=== PATIENT | female | born 1965 | race Caucasian/White ===

== ENCOUNTER → 2017-02-24 | Outpatient (CLI) | payer BC ==
[~2017-02-24] MED LIST: ASCO250T4 PO; CETI10TA84 PO; CHOL20009 PO; CONJ0.453 PO; CYAN500T PO; CYCL0.052 OPB; MULT-506 PO; MULT1CHW44 PO; OYST500T47 PO
== END | disposition home or self-care (01) ==
LOC: C.RDSM 14:10
PROVIDERS: ATTEND Physical Medicine & Rehabilitation Sports Medicine
DX: M25.551 Pain in right hip (principal)

== ENCOUNTER → 2017-02-24 | Outpatient (CLI) | payer BC ==
[2017-02-24 16:47] LABS: HEMATOCRIT 37.9 % (37-47); MEAN CORPUSCULAR HEMOGLOBIN 30.2 pg (25-34); MEAN CORPUSCULAR HGB CONC 33.5 g/dl (32-36); MEAN PLATELET VOLUME 10.5 fL (7.4-10.4); PLATELET COUNT 245 K/uL (130-400); RED BLOOD COUNT 4.21 M/uL (4.2-5.4); WHITE BLOOD COUNT 6.11 K/uL (4.8-10.8)
[2017-02-24 17:18] LABS: BLOOD UREA NITROGEN 10 mg/dl (7-18); BUN/CREATININE RATIO 14.1 (10-20); CALCIUM 9.1 mg/dl (8.5-10.1); CARBON DIOXIDE 29 mmol/L (21-32); CHLORIDE 105 mmol/L (98-107); GLUCOSE 90 mg/dl (70-99); POTASSIUM 3.7 mmol/L (3.5-5.1); SODIUM 142 mmol/L (136-145)
== END | disposition home or self-care (01) ==
LOC: C.LAB1850 16:03
PROVIDERS: ATTEND Physician Assistant
DX: Z01.812 Encounter for preprocedural laboratory examination (principal); M24.151 Other articular cartilage disorders, right hip

== ENCOUNTER → 2017-03-04 | Day surgery (SDC) | payer BC ==
[2017-02-28 08:46] VITALS: Ht 160 cm; Wt 49.5 kg
[~2017-03-04] VITALS: Ht 160 cm; Wt 49.5 kg
[~2017-03-04] MED LIST changes: +ATROPINE SULFATE 0.1 MG/ML 5ML SYR IV PRN; +CEFAZOLIN 2000 MG/60 ML D5W IV SCH; +DEXAMETHASONE SOD INJ 4 MG/ML VIAL ONE; +EpHEDrine SULFATE 50MG/5ML SYR ONE; +EpHEDrine SULFATE INJ 50 MG/ML AMP IV PRN; +FENTANYL CITRATE INJ 50 MCG/1 ML 2 ML VIAL IV PRN; +FENTANYL CITRATE INJ 50 MCG/1 ML 2 ML VIAL ONE; +GLYCOPYRROLATE INJ 0.2 MG/ML VIAL ONE; +HYDROmorphone INJ 1 MG/ML SYR ONE; +LACTATED RINGER'S 1000ML 1,000 ML IV SCH; +LIDOCAINE HCL 2% 2 ML VIAL (20MG/ML) ONE; +MIDAZOLAM HCL 1 MG/ML 2ML VIAL ONE; +NEOSTIGMINE METHYLSULFATE 5 MG/5 ML SYR ONE; +ONDANSETRON INJ 2 MG/ML 2 ML VIAL IV PRN; +ONDANSETRON INJ 2 MG/ML 2 ML VIAL ONE; +OXYCODONE/ACETAMINOPHEN 5-325 TAB PO PRN; +PROPOFOL IV EMULSION 10 MG/ML 20 ML VIAL IV ONE; +ROCURONIUM BROMIDE 10 MG/ML 5 ML VIAL ONE; +SCOPOLAMINE 1.5 MG TDSY TD ONE; +SODIUM CHLORIDE 0.9% 1000ML 1,000 ML IV SCH; +SODIUM CHLORIDE 0.9% INJ 10 ML VIAL ONE
--- NOTE | 2017-03-04 06:49 | History & Physical Bridge Note ---
H&P Re-Evaluation Bridge Note: I have examined the patient, reviewed the History & Physical and in the interval since the performance of the History & Physical I have noted the following changes of clinical significance: No changes noted
--- NOTE | 2017-03-04 06:50 | Discharge Instructions ---
Discharge Instructions Date of Service Mar 04, 2017. Visit Reason for Visit: Right Hip Labral Tear Discharge Discharge Diagnosis / Problem: same Discharge Goals Goal(s): Decrease discomfort, Improve function Medications Stopped Medications Name(s): na Activity Recommendations Activity Limitations: as noted below Lifting Limitations: until after follow-up appointment Exercise/Sports Limitations: until after follow-up appointment May Resume Sexual Activity: after follow-up appointment Shower/Bathe: keep incision dry Weightbearing Status: Right toe touch Anesthesia . Post Anesthesia Instructions: If you have had General Anesthesia or IV Sedation: * Do not drive today. * Resume driving when surgeon permits. * Do not make important decisions or sign legal documents today. * Call surgeon for: 1. Temperature elevations greater than 101 degrees F. 2. Uncontrollable pain. 3. Excessive bleeding. 4. Persistent nausea and vomiting. 5. Medication intolerance (nausea, vomiting or rash). * For nausea and vomiting use only clear liquids such as: tea, soda, bouillon until nausea subsides, then gradually increase diet as tolerated. * If you have any concerns or questions, call your surgeon's office. If physician is unavailable and it is an emergency, call 911 or go to the nearest emergency room. . Instructions / Follow-Up Instructions / Follow-Up New Medicine: * You will likely be taking one or more of these medicines: 1. Percocet - Take, as directed, when you need it, every four to six hours to control your pain. 2. Iron Sulfate - Take three times each day for the month after surgery to help you replace the blood lost during surgery. 3. Coumadin - Thins your blood to lessen the chance of forming a blood clot. The dose of this is different for each person and is based on your blood tests that are done twice a week. * The most common side effects of pain medicine and iron are nausea and constipation. If nausea or constipation is too much of a problem or if you have any questions about your new medicines or doses, call [facility] at . We will try to help you manage these issues. VERY IMPORTANT TO READ AND REVIEW" Blood Clots and Blood Thinning Medicine: * You are given Coumadin during the immediate post-operative period to lessen the risk of blood clots forming in your legs and/or lungs. Coumadin is usually given for six weeks after surgery. * The prescription is for 2 mg tablets. At discharge, you should understand your dose and take it all at the same time every day, preferably after dinner. * You need to get your blood checked 1 - 2 times per week for six weeks, or as directed. * If your dose needs to change, we will call you. Do not take your medication on the day of the blood test until we call you. * If you don't hear from us after your blood draws, keep taking the same dose. Pain: * The immediate post-operative period after hip replacement surgery is often quite painful. * You are given a prescription for pain medicine. You should take it, as directed, when you need it, especially before physical therapy and before going to bed. Pain that interferes with sleep is very common and can last several months. * You will likely need pain medicine for the first two to four weeks. It will not stop all of the pain. The pain will lessen and as you feel better, you may change to milder pain medicine such as Tylenol. * The most common side effects of pain medicine are nausea and constipation, so don't take more than you need. Physical Therapy: * Follow the "Hip Precautions Instructions." * In some cases, the high school social studies tutor at the hospital will arrange to have a therapist come to your house for the first couple of weeks to help you learn these skills. * You need to practice on your own or with the help of a family member as needed. * When you learn these skills, most of the therapy can be done on your own. Home Exercise: * You were shown a series of exercises in the hospital. Do these exercises three to four times each day including the exercises you were shown in physical therapy. Walking: * Get up and walk several times each day. For the first four weeks, try not to stand or walk for more than one hour at a time. If you do stand or walk for more than one hour, you will not hurt anything, but your leg will likely swell. * As you feel comfortable, you may change from the walker or crutches to a cane and then to independent walking. SELF CARE INSTRUCTIONS AFTER TOTAL HIP REPLACEMENT Until the incision and soft tissues around your hip have healed, there is a possibility that the hip prosthesis could dislocate. A. Observe the following precautions to prevent dislocation: 1. Don't bend your hip greater than 90 degrees. 2. Avoid crossing your legs or ankles while standing or lying. 3. Sit with your feet placed 6 inches apart. 4. When sitting, keep your knees below your hips. Sit on a firm surface, avoid deep, soft chairs and couches. Use an elevated toilet seat in the bathroom. 5. Don't bend over at the waist. Use a long handled shoehorn and a sock aid to help you put on your shoes and socks. A central supply aide can help you worm picker objects that are too high or too low to reach. 6. Keep car riding to a minimum for at least one month after surgery. B. Your balance may be shaky for a while. Use crutches or a walker until directed by your doctor. C. Use hand rails when walking on stairs. D. Wear low heeled shoes with non-slip soles. E. Be sure that your floors are free of things that could trip you - throw rugs , electrical cords, small objects. Avoid wet and waxed floors, especially with crutches and canes. F. Try to walk several times a day with rest periods between. G. Continue with all the exercises taught to you in the hospital. Again, make walking a part of your daily routine. VERY IMPORTANT TO READ AND REVIEW A. Take Coumadin, or Lovenox (blood thinning medications) as directed by your doctor. If you are on Coumadin, have a pro-time (blood test) drawn according to your doctor's instructions. This will tell the doctor how well the Coumadin is thinning your blood. B. There are a few signs you need to watch for after you are home. If you notice any of the followin. Increased severe hip pain. Some pain is expected especially when you exercise. 2. Increased swelling in your leg or knee; pain or swelling of the calf muscle in either lower leg. 3. Any fluid drainage from the incision. 4. Shortness of breath or chest pain. TEDs/Elastic Stockings: * The white elastic stockings help limit swelling and prevent blood clots from forming in your legs. The more you wear them, the more they work. * Wear them for six weeks. Prevention of Infection: * Take antibiotics one hour before any dental cleaning, dental work, urological procedure, gastrointestinal procedure or any invasive surgery in order to prevent your new joint from getting infected. * You may get the antibiotics from the doctor performing the procedure or we will call in a prescription to the pharmacy of your choice. Call the office for a prescription at least 2 days prior to your appointment. Things to Watch For: * Drainage from the incision site that occurs more than one week after your surgery. * Severely increased leg pain or swelling. * Increased redness at the incision site. * Fever above 101 degrees Fahrenheit. * Unusual chest pain or shortness of breath. * Unusual pain or burning with urination. Diet Recommendations Recommended Home Diet: resume previous diet Procedures Procedures Performed: see op note right hip scope Pending Studies Studies pending at discharge: no Medical Emergencies . Who to Call and When: Medical Emergencies: If at any time you feel your situation is an emergency, please call 911 immediately. . Non-Emergent Contact Non-Emergency issues call your: Specialist Call Non-Emergent contact if: temperature is above 101.5 . . "Provider Documentation" section prepared by Raphael Mata.
--- NOTE | 2017-03-04 10:23 | [facility] Post Operative Brief Note ---
Immediate Operative Summary Operative Date Mar 04, 2017. Pre-Operative Diagnosis Right Hip Labral Tear Post-Operative Diagnosis same Procedure(s) Performed Right Hip Arthroscopic Labral Debridement, Labral Repair Surgeon Dr. Siddhartha Mata Electrical Logging Operator Surgeon(s) Dr. Andrews Feliciano, [facility],. PA-C Estimated Blood Loss trace Findings labral tear with chondral disease acetabulum/small CAM lesion Fluids (cc crystalloids) 1200cc Specimens none Drains none Anesthesia GET Complication(s) None Disposition Recovery Room / PACU
--- NOTE | 2017-03-04 10:53 | OPERATIVE REPORT ---
DATE OF OPERATION: 03/04/2017 SURGEON: Dr. Mata. SPEECH CORRECTION CONSULTANT: Nilam. SECOND SPEECH CORRECTION CONSULTANT: Pj Wade PA-C. PREOPERATIVE DIAGNOSIS: Labral tear, right hip, chondral labral degeneration, small cam lesion. POSTOPERATIVE DIAGNOSIS: Same. OPERATION PERFORMED: 1. Exam under anesthesia. 2. Diagnostic arthroscopy. 3. Arthroscopic debridement and chondroplasty acetabulum with labral repair. 4. Resection of small cam lesion. PERIOPERATIVE SITUATION: Medically cleared female with intractable hip pain. At this point in time wants to proceed with surgical treatment, failed conservative management. Physical exam, x-ray and MRI scan consistent with labral tear, perhaps small cam lesion. PROCEDURE IN DETAIL: The patient appropriately identified, site verified, consent verified, 2 grams of Ancef confirmed as being given. The right lower extremity was examined, it was not unstable. She was then carefully placed in the traction table and traction applied. Hip was then able to be distracted well. Traction was released. The leg was then prepped and draped in usual routine fashion, traction applied, and the anterior trochanteric portal made in the central zone of the joint. With needle localization, the anterior portal was made lateral /distal to the anterior superior iliac spine. Excellent portals were obtained. Small capsular releases were performed. Mobility was excellent. The labrum was definitely diseased with hypermobility, flipping into the joint, and chondral labral delamination. This was all cleaned with the shaver and instrumentation and debrided. Two anchors were then placed with suture loops, excellent repair obtained. The capsule was then debrided slightly and the hip flexed and the small cam lesion resected with the shaver and a small round sheri, it was very small. All bone dust and debris was then removed. The procedure was then terminated. All instruments and fluid removed and the portals closed with 4-0 nylon, dressed with Xeroform, 4 x 4 gauze, ABD pads, and Ioban dressing. Estimated blood loss trace. Crystalloid 1200 mL. The patient will be touchdown weightbearing. DVT prophylaxis per protocol with some Lovenox. Brace wear to prevent hypermobility. Overall procedure time and traction time was approximately 61 minutes. Additional 10 minutes for the small cam resection. Overall prognosis for this hip was guarded based on some degenerative changes of the acetabulum. The acetabulum had some chondral labral disease, that was debrided, and extended into the weightbearing surface superiorly and anteriorly. It was not full thickness. It was cleaned with the shaver and then lightly touched with a thermal device to seal it. No other additional pathology found. I attest to the content of the Intraoperative Record and any orders documented therein. Any exceptions are noted below. JAUN
--- NOTE | 2017-03-04 10:57 | Anesthesia Progress Nt - [facility] ---
Anesthesia Post Op Note Date & Time Mar 04, 2017 at 10:56 Vital Signs Pain Intensity: 0 Vital Signs Past 12 Hours Date Time Temp Pulse Resp B/P Pulse Ox O2 Delivery O2 Flow Rate FiO2 03/04/17 06:59 36.6 75 16 114/73 97 Room Air Notes Mental Status: alert / awake / arousable, participated in evaluation Pt Amnestic to Procedure: Yes Nausea / Vomiting: adequately controlled Pain: adequately controlled Airway Patency, RR, SpO2: stable & adequate BP & HR: stable & adequate Hydration State: stable & adequate Anesthetic Complications: no major complications apparent
--- NOTE | 2017-03-04 10:57 | OPERATIVE REPORT ---
DATE OF OPERATION: 03/04/2017 PREOPERATIVE DIAGNOSIS: Right hip labral tear. POSTOPERATIVE DIAGNOSIS: Right hip same. PROCEDURE: Right hip arthroscopy with labral debridement and labral repair. SURGEON: Dr. Mata. ASSEMBLER CORNCOB PIPES: Dr. Demarco. SECOND ASSEMBLER CORNCOB PIPES: Pj Wade PA-C. HISTORY OF PRESENT ILLNESS: This 51-year-old white female presented to the office with complaints of right hip pain. She had tried conservative care measures including physical therapy and activity modification without success. She elected to proceed with surgical intervention after being educated about potential risks and outcomes. OPERATION: The patient was taken to the operating room where she was given general anesthetic. She was prepped and draped in the usual sterile fashion. Please see Dr. Mata's operative report for specifics of the procedure. I was present for the entire case from initial patient positioning through final wound closure. Assistance was provided in patient positioning, arthroscopy, hardware placement, and final wound closure. The patient was taken to the recovery room in satisfactory condition. I attest to the content of the Intraoperative Record and any orders documented therein. Any exceptio ns are noted below.
[2017-03-04 12:00] VITALS: TEMP 36.8
[2017-03-04 12:48] VITALS: BP 96/63; PULSE 64; O2SAT 96
== END | disposition home or self-care (01) ==
LOC: X.SURG 06:36
PROVIDERS: ATTEND Physical Medicine & Rehabilitation Sports Medicine
DX: S76.091A Other specified injury of muscle, fascia and tendon of right hip, initial encounter (principal); M25.851 Other specified joint disorders, right hip; Z79.899 Other long term (current) drug therapy; W10.8XXA Fall (on) (from) other stairs and steps, initial encounter

== ENCOUNTER → 2017-04-21 | Outpatient (CLI) | payer BC ==
[~2017-04-21] MED LIST changes: -ATROPINE SULFATE 0.1 MG/ML 5ML SYR IV PRN; -CEFAZOLIN 2000 MG/60 ML D5W IV SCH; -DEXAMETHASONE SOD INJ 4 MG/ML VIAL ONE; -EpHEDrine SULFATE 50MG/5ML SYR ONE; -EpHEDrine SULFATE INJ 50 MG/ML AMP IV PRN; -FENTANYL CITRATE INJ 50 MCG/1 ML 2 ML VIAL IV PRN; -FENTANYL CITRATE INJ 50 MCG/1 ML 2 ML VIAL ONE; -GLYCOPYRROLATE INJ 0.2 MG/ML VIAL ONE; -HYDROmorphone INJ 1 MG/ML SYR ONE; -LACTATED RINGER'S 1000ML 1,000 ML IV SCH; -LIDOCAINE HCL 2% 2 ML VIAL (20MG/ML) ONE; -MIDAZOLAM HCL 1 MG/ML 2ML VIAL ONE; -NEOSTIGMINE METHYLSULFATE 5 MG/5 ML SYR ONE; -ONDANSETRON INJ 2 MG/ML 2 ML VIAL IV PRN; -ONDANSETRON INJ 2 MG/ML 2 ML VIAL ONE; -OXYCODONE/ACETAMINOPHEN 5-325 TAB PO PRN; -PROPOFOL IV EMULSION 10 MG/ML 20 ML VIAL IV ONE; -ROCURONIUM BROMIDE 10 MG/ML 5 ML VIAL ONE; -SCOPOLAMINE 1.5 MG TDSY TD ONE; -SODIUM CHLORIDE 0.9% 1000ML 1,000 ML IV SCH; -SODIUM CHLORIDE 0.9% INJ 10 ML VIAL ONE
== END | disposition home or self-care (01) ==
LOC: C.RDSM 12:21
PROVIDERS: ATTEND Physical Medicine & Rehabilitation Sports Medicine
DX: M24.151 Other articular cartilage disorders, right hip (principal)

== ENCOUNTER → 2017-05-26 | Outpatient (CLI) | payer BC | END | disposition home or self-care (01) | LOC: C.RDSM 07:00 | PROVIDERS: ATTEND Physical Medicine & Rehabilitation Sports Medicine | DX: M24.151 Other articular cartilage disorders, right hip (principal) ==

== ENCOUNTER → 2017-12-01 | Outpatient (CLI) | payer BC | END | disposition home or self-care (01) | LOC: C.RDSM 11:25 | PROVIDERS: ATTEND Physical Medicine & Rehabilitation Sports Medicine | DX: S73.191A Other sprain of right hip, initial encounter (principal); X58.XXXA Exposure to other specified factors, initial encounter; M79.671 Pain in right foot ==

== ENCOUNTER → 2018-02-10 | Day surgery (SDC) | payer BC ==
[2017-12-22 11:10] VITALS: Ht 160 cm; Wt 50.9 kg
[~2018-02-10] VITALS: Ht 160 cm; Wt 50.9 kg
[~2018-02-10] MED LIST changes: +ATROPINE SULFATE 0.4 MG/ML 1 ML VIAL IV PRN; +BUPIVACAINE 0.25% 30 ML VIAL ONE; +BUPIVACAINE 0.5 % 5 MG/1 ML PF 10ML VIAL ONE; +CEFAZOLIN 2000MG IV PUSH 15 ML IV SCH; +CONJ0.3T3 PO; +DEXAMETHASONE SOD INJ 4 MG/ML VIAL ONE; +EpHEDrine SULFATE INJ 50 MG/ML AMP IV PRN; +EpINEphrine INJ 1MG/ML AMP 1 MG/ML AMP ONE; +FENTANYL CITRATE INJ 50 MCG/1 ML 2 ML VIAL IV PRN; +FENTANYL CITRATE INJ 50 MCG/1 ML 2 ML VIAL ONE; +LACTATED RINGER'S 1000ML 1,000 ML IV SCH; +LIDOCAINE HCL 2% 2 ML VIAL (20MG/ML) ONE; +MIDAZOLAM HCL 1 MG/ML 2ML VIAL ONE; +ONDANSETRON INJ 2 MG/ML 2 ML VIAL IV PRN; +ONDANSETRON INJ 2 MG/ML 2 ML VIAL ONE; +PROPOFOL IV EMULSION 10 MG/ML 20 ML VIAL IV ONE; +ROPIVACAINE 0.5% 5 MG/ML 30 ML VIAL ONE; +SODIUM CHLORIDE 0.9% 1000ML 1,000 ML IV SCH
--- NOTE | 2018-02-10 06:56 | History & Physical Bridge Note ---
H&P Re-Evaluation Bridge Note: I have examined the patient, reviewed the History & Physical and in the interval since the performance of the History & Physical I have noted the following changes of clinical significance: consent obtained.No changes noted
--- NOTE | 2018-02-10 06:58 | Discharge Instructions ---
Discharge Instructions Date of Service Feb 10, 2018. Visit Reason for Visit: Right Foot Medial Sesmoid Fx W/ Avascular Necrosis Discharge Discharge Diagnosis / Problem: same Discharge Goals Goal(s): Decrease discomfort, Improve function Medications Stopped Medications Name(s): na Restart Stopped Medication(s): use all scripts as directed Activity Recommendations Activity Limitations: as noted below Lifting Limitations: until after follow-up appointment Exercise/Sports Limitations: until after follow-up appointment May Resume Sexual Activity: when tolerated Shower/Bathe: keep incision dry Driving or Machine Use: Weightbearing Status: Right partial Anesthesia . Post Anesthesia Instructions: If you have had General Anesthesia or IV Sedation: * Do not drive today. * Resume driving when surgeon permits. * Do not make important decisions or sign legal documents today. * Call surgeon for: 1. Temperature elevations greater than 101 degrees F. 2. Uncontrollable pain. 3. Excessive bleeding. 4. Persistent nausea and vomiting. 5. Medication intolerance (nausea, vomiting or rash). * For nausea and vomiting use only clear liquids such as: tea, soda, bouillon until nausea subsides, then gradually increase diet as tolerated. * If you have any concerns or questions, call your surgeon's office. If physician is unavailable and it is an emergency, call 911 or go to the nearest emergency room. . Instructions / Follow-Up Instructions / Follow-Up DIET: * Resume previous diet. MEDICATIONS: * Please take your prescriptions as instructed at your pre-op appointment and/ or see medication discharge instructions listed above. * If concerns develop, call your physician's office at . SPECIAL CARE INSTRUCTIONS: * Ice/Elevate as instructed. * Keep dressing clean, dry, intact. * Your surgical extremity may be discolored due to prepping agents used on the skin. A bluish-green tint is a normal variant and should not cause alarm. Call your doctor at [phone] if: * Temperature above 101 degrees * Pain not relieved by pain medicine ordered * There is increased drainage or redness from any incision * You have any unanswered questions, problems or concerns. FOLLOW UP VISIT: * If not already scheduled, please call the office at to schedule a follow-up appointment. Diet Recommendations Recommended Home Diet: resume previous diet Procedures Procedures Performed: medial sesmoid excision Pending Studies Studies pending at discharge: yes List of pending studies: bone Medical Emergencies . Who to Call and When: Medical Emergencies: If at any time you feel your situation is an emergency, please call 911 immediately. . Non-Emergent Contact Non-Emergency issues call your: Specialist Call Non-Emergent contact if: wound has increased drainage, wound has increased redness, wound has increased pain . . "Provider Documentation" section prepared by Raphael Mata. .
--- NOTE | 2018-02-10 07:56 | [facility] Post Operative Brief Note ---
Immediate Operative Summary Operative Date Feb 10, 2018. Pre-Operative Diagnosis Right Foot Medial Sesmoid FX with Avascular Necrosis Post-Operative Diagnosis same as pre op Procedure(s) Performed Right Foot Medial Sesmoidectomy Surgeon Dr Mata Maintenance Team Leader Surgeon(s) Efraín Valenzuela MD and JESUS ALBERTO Salinas C Estimated Blood Loss trace Findings Consistent with Post-Op Diagnosis Fluids (cc crystalloids) 1000cc Specimens A) Right Foot Medial Sesmoid Drains None Anesthesia Type General Regional Complication(s) none Disposition Accompanied Pt To Recovery: no Disposition: Recovery Room / PACU
--- NOTE | 2018-02-10 08:15 | OPERATIVE REPORT ---
DATE OF OPERATION: 02/10/2018 SURGEON: Dr. Mata. TRANSPORT RN: Nicolas. SECOND TRANSPORT RN: Pj Wade PA-C. PREOPERATIVE DIAGNOSIS: Avascular necrosis with fracture medial sesamoid, right foot. POSTOPERATIVE DIAGNOSIS: Same. OPERATION PERFORMED: Medial sesamoidectomy, right foot. PERIOPERATIVE SITUATION: Medically cleared female who has had intractable pain in her foot for an extended period of time, has failed conservative management and is requesting surgical treatment. Options were discussed with her. She proceeds with surgery and excision versus partial excision. She understands the risks and consequences on the consent. The patient was properly identified, site verified, consent verified, Ancef confirmed as being given. The right lower extremity was prepped and draped in the usual routine fashion. She did have a popliteal block by anesthesia. Tourniquet was inflated to 275 mmHg after exsanguination of limb with a rubber Esmarch bandage for a total of about 21 minutes. A medial approach to the sesamoid MTP joint was made. Full-thickness flaps raised, care taken to protect the nerves. The fascia was then opened, the joint opened. There was exuberant synovitis which was excised. The fracture could be seen, it was tipped up. It was then subperiosteally dissected from the short flexor and then the sesamoid removed, the fragment removed first distally and then the proximal fragment removed. Complete excision occurred. The wound was then irrigated and then the fascia closed with 2-0 Vicryl and the skin with 3-0 nylon horizontal mattress sutures. The patient tolerated the procedure well. Wound appropriately dressed, and transferred to the recovery room in satisfactory condition, having tolerated the procedure well. Estimated blood loss trace. Crystalloid 1000 mL. Bone pathology pending on the medial sesamoid. DVT prophylaxis per protocol. I attest to the content of the Intraoperative Record and any orders documented therein. Any exception s are noted below.
--- NOTE | 2018-02-10 08:46 | Anesthesia Progress Nt - [facility] ---
Anesthesia Post Op Note Date & Time Feb 10, 2018 at 08:46 Vital Signs Pain Intensity: 0 Vital Signs Past 12 Hours Date Time Temp Pulse Resp B/P (MAP) Pulse Ox O2 Delivery O2 Flow Rate FiO2 02/10/18 08:27 107/41 02/10/18 08:25 67 16 02/10/18 08:25 69 16 99 02/10/18 08:25 36.2 99 Room Air 02/10/18 08:24 65 12 02/10/18 08:24 65 12 98 02/10/18 08:21 118/73 02/10/18 08:19 79 20 02/10/18 08:19 80 20 100 02/10/18 08:18 67 10 02/10/18 08:18 69 10 100 02/10/18 08:17 63 7 99 02/10/18 08:17 64 7 02/10/18 08:16 99/61 02/10/18 08:12 70 11 02/10/18 08:12 71 11 100 02/10/18 08:11 103/65 02/10/18 08:07 72 12 02/10/18 08:07 73 12 100 02/10/18 08:06 94/59 02/10/18 08:05 68 11 100 02/10/18 08:05 68 11 02/10/18 08:01 99/59 02/10/18 08:00 71 17 99 02/10/18 08:00 71 17 02/10/18 07:58 95/68 02/10/18 07:57 37.2 74 12 95/68 99 Mask 8 02/10/18 07:20 0 02/10/18 07:19 0 02/10/18 07:14 73 0 100 02/10/18 07:14 73 02/10/18 07:11 119/74 02/10/18 07:09 74 02/10/18 07:09 75 8 100 02/10/18 07:06 116/80 02/10/18 07:04 77 02/10/18 07:04 77 100 02/10/18 07:02 128/68 02/10/18 06:59 75 02/10/18 06:59 76 0 98 02/10/18 06:56 123/75 02/10/18 06:54 77 02/10/18 06:54 74 0 125/80 98 02/10/18 06:49 75 02/10/18 06:49 75 0 98 02/10/18 06:44 81 02/10/18 06:44 82 0 98 02/10/18 06:39 16 02/10/18 06:39 91 16 02/10/18 06:23 37.0 76 16 106/73 (84) 96 Room Air Notes Mental Status: alert / awake / arousable, participated in evaluation Pt Amnestic to Procedure: Yes Nausea / Vomiting: adequately controlled Pain: adequately controlled Airway Patency, RR, SpO2: stable & adequate BP & HR: stable & adequate Hydration State: stable & adequate Anesthetic Complications: no major complications apparent
[2018-02-10 08:54] VITALS: BP 103/66; PULSE 64; TEMP 37; O2SAT 98
--- NOTE | 2018-02-11 13:40 | [facility] Operative Report ---
Operative Report Operative Date Feb 10, 2018. Pre-Operative Diagnosis Right Foot Medial Sesmoid FX with Avascular Necrosis Post-Operative Diagnosis Right foot same as pre op Procedure(s) Performed Right Foot Medial Sesmoidectomy Surgeon Dr Mata Label Pinker Surgeon(s) Efraín Valenzuela MD and JESUS ALBERTO Salinas Estimated Blood Loss trace Findings Right foot medial sesamoid fracture with AVN Fluids 1000cc Specimens A) Right Foot Medial Sesmoid Drains None Anesthesia Type General Regional Complication(s) none Disposition no Recovery Room / PACU Indications This 52-year-old white female presented to the office with complaints of right foot pain at the first MTP plantar surface. Preoperative imaging was obtained. She elected to proceed with surgical intervention after being educated about potential risks and outcomes. Description of Procedure Patient was administered a regional block and then taken to the operating room where she was given general anesthesia. She was prepped and draped in usual sterile fashion. Please see Dr. Mata's operative report for specifics of the procedure. I was present for the entire case from initial patient positioning through final wound closure. Assistance was provided in tissue retraction, hemostasis, and final wound closure. Patient was taken to the recovery room in satisfactory condition. I attest to the content of the Intraoperative Record and any orders documented therein. Any exceptions are noted below.
== END | disposition home or self-care (01) ==
LOC: X.SURG 06:11
PROVIDERS: ATTEND Physical Medicine & Rehabilitation Sports Medicine
DX: S92.819A Other fracture of unspecified foot, initial encounter for closed fracture (principal); X58.XXXA Exposure to other specified factors, initial encounter; M87.874 Other osteonecrosis, right foot; M65.871 Other synovitis and tenosynovitis, right ankle and foot; Z98.890 Other specified postprocedural states; Z83.3 Family history of diabetes mellitus; Z80.8 Family history of malignant neoplasm of other organs or systems

== ENCOUNTER → 2018-04-07 | Outpatient (CLI) | payer BC ==
[~2018-04-07] MED LIST changes: -ATROPINE SULFATE 0.4 MG/ML 1 ML VIAL IV PRN; -BUPIVACAINE 0.25% 30 ML VIAL ONE; -BUPIVACAINE 0.5 % 5 MG/1 ML PF 10ML VIAL ONE; -CEFAZOLIN 2000MG IV PUSH 15 ML IV SCH; -CONJ0.453 PO; -DEXAMETHASONE SOD INJ 4 MG/ML VIAL ONE; -EpHEDrine SULFATE INJ 50 MG/ML AMP IV PRN; -EpINEphrine INJ 1MG/ML AMP 1 MG/ML AMP ONE; -FENTANYL CITRATE INJ 50 MCG/1 ML 2 ML VIAL IV PRN; -FENTANYL CITRATE INJ 50 MCG/1 ML 2 ML VIAL ONE; -LACTATED RINGER'S 1000ML 1,000 ML IV SCH; -LIDOCAINE HCL 2% 2 ML VIAL (20MG/ML) ONE; -MIDAZOLAM HCL 1 MG/ML 2ML VIAL ONE; -ONDANSETRON INJ 2 MG/ML 2 ML VIAL IV PRN; -ONDANSETRON INJ 2 MG/ML 2 ML VIAL ONE; -PROPOFOL IV EMULSION 10 MG/ML 20 ML VIAL IV ONE; -ROPIVACAINE 0.5% 5 MG/ML 30 ML VIAL ONE; -SODIUM CHLORIDE 0.9% 1000ML 1,000 ML IV SCH
== END | disposition home or self-care (01) ==
LOC: C.RDSM 15:00
PROVIDERS: ATTEND Physical Medicine & Rehabilitation Sports Medicine
DX: M25.871 Other specified joint disorders, right ankle and foot (principal)

== ENCOUNTER → 2018-06-15 | Outpatient (CLI) | payer BC | END | disposition home or self-care (01) | LOC: C.RDSM 13:48 | PROVIDERS: ATTEND Physical Medicine & Rehabilitation Sports Medicine | DX: S73.199A Other sprain of unspecified hip, initial encounter (principal); X58.XXXA Exposure to other specified factors, initial encounter ==